=== PATIENT | female | born 1995 | race African-American/Black ===

== ENCOUNTER 2017-01-26 20:21 | Emergency (ER) | payer MEDICAID ==
--- NOTE | 2017-01-26 20:44 | ER Document Report ---
ED Medical Screen (RME) - General Stated Complaint: STOMACH AND BACK PAIN Notes: 21 yo female c/o lower abdominal pain x 2 weeks. no fever. no urinary symptoms. no vaginal bleeding or pain. + nausea, no vomiting. LMP 01/10 - Related Data Allergies/Adverse Reactions: No Known Allergies Allergy (Unverified 01/26/17 20:39) Physical Exam - Vital signs Vitals: Temp Pulse Resp BP Pulse Ox 98.3 F 102 H 20 141/60 H 98 01/26/17 20:27 01/26/17 20:27 01/26/17 20:27 01/26/17 20:27 01/26/17 20:27 Course - Vital Signs Vital signs: Temp Pulse Resp BP Pulse Ox 98.4 F 103 H 18 119/77 100 01/26/17 20:31 01/26/17 20:31 01/26/17 20:31 01/26/17 20:31 01/26/17 20:31
[2017-01-26 21:38] LABS: ABSOLUTE LYMPHOCYTES (AUTO) 0.9 10^3/uL (0.5-4.7); ABSOLUTE MONOCYTES (AUTO) 0.9 10^3/uL (0.1-1.4); BASOPHILS % (AUTO) 0.4 % (0-2); EOSINOPHILS % (AUTO) 0.3 % (0-6); HEMATOCRIT 36.9 % (36.0-47.0); HEMOGLOBIN 11.6 g/dL (12.0-15.5); HGB HCT DIFFERENCE -2.1; LYMPHOCYTES % (AUTO) 7.8 % (13-45); MEAN CORPUSCULAR HEMOGLOBIN 24.7 pg (27.0-33.4); MEAN CORPUSCULAR HGB CONC 31.4 g/dL (32.0-36.0); MEAN CORPUSCULAR VOLUME 79 fl (80-97); MONOCYTES % (AUTO) 7.4 % (3-13); RED BLOOD COUNT 4.68 10^6/uL (3.72-5.28); RED CELL DISTRIBUTION WIDTH 17.2 % (11.5-14.0); SEGMENTED NEUTROPHILS % (AUTO) 84.1 % (42-78); WHITE BLOOD COUNT 11.8 10^3/uL (4.0-10.5)
[2017-01-26 21:58] LABS: ALANINE AMINOTRANSFERASE 23 U/L (9-52); ALBUMIN 4.3 g/dL (3.5-5.0); ALKALINE PHOSPHATASE 69 U/L (38-126); ANION GAP 11 (5-19); ASPARTATE AMINO TRANSFERASE 18 U/L (14-36); BILIRUBIN,TOTAL 0.5 mg/dL (0.2-1.3); BLOOD UREA NITROGEN 13 mg/dL (7-20); CALCIUM 9.9 mg/dL (8.4-10.2); CARBON DIOXIDE 27 mmol/L (22-30); CHLORIDE 102 mmol/L (98-107); CREATININE RESULT 0.77 mg/dL (0.52-1.25); GLUCOSE 98 mg/dL (75-110); POTASSIUM 4.3 mmol/L (3.6-5.0); SODIUM 139.6 mmol/L (137-145); TOTAL PROTEIN 7.4 g/dL (6.3-8.2)
[2017-01-27] MEDS ORDERED: ONDANSETRON 4 MG TAB.RAPDIS PO ONE (00:51)
[2017-01-27] MEDS ORDERED: OXYCODONE-ACETAMINOPHEN 5-325 MG TABLET PO ONE (00:51)
--- NOTE | 2017-01-27 00:52 | ER Document Report ---
ED GI/ - General Chief Complaint: Lower Abdominal Pain Stated Complaint: STOMACH AND BACK PAIN Notes: Patient is a 21-year-old female that comes emergency department for chief complaint of 2 weeks of worsening lower abdominal pain that has now developed into pain in her mid back, she states she started getting nauseated and the pain worsened significantly today, she states she began having chills earlier this evening. As vomiting, fever, vaginal discharge or bleeding. Patient takes no daily medications, denies any surgeries or medical history. LMP 2016. TRAVEL OUTSIDE OF THE [place] IN LAST 30 DAYS: No - Related Data Allergies/Adverse Reactions: No Known Allergies Allergy (Unverified 01/26/17 20:39) Past Medical History - General Information source: Patient - Social History Smoking Status: Never Smoker Chew tobacco use (# tins/day): No Frequency of alcohol use: None Drug Abuse: None Lives with: Family Family History: Reviewed & Not Pertinent Patient has suicidal ideation: No Patient has homicidal ideation: No - Medical History Medical History: Negative Renal/ Medical History: Denies: Hx Peritoneal Dialysis Surgical Hx: Negative - Immunizations Immunizations up to date: Yes Hx Diphtheria, Pertussis, Tetanus Vaccination: Yes Review of Systems - Review of Systems Constitutional: See HPI EENT: No symptoms reported Cardiovascular: No symptoms reported Respiratory: No symptoms reported Gastrointestinal: See HPI Genitourinary: See HPI Female Genitourinary: No symptoms reported Musculoskeletal: No symptoms reported Skin: No symptoms reported Hematologic/Lymphatic: No symptoms reported Neurological/Psychological: No symptoms reported Physical Exam - Vital signs Vitals: Temp Pulse Resp BP Pulse Ox 98.3 F 102 H 20 141/60 H 98 01/26/17 20:27 01/26/17 20:27 01/26/17 20:27 01/26/17 20:27 01/26/17 20:27 Interpretation: Normal - General General appearance: Appears well, Alert. No: Anxious In distress: None - HEENT Head: Normocephalic, Atraumatic Eyes: Normal Pupils: PERRL Mouth/Lips: Normal Mucous membranes: Normal Pharynx: Normal Neck: Normal - Respiratory Respiratory status: No respiratory distress Chest status: Nontender Breath sounds: Normal Chest palpation: Normal - Cardiovascular Rhythm: Regular, Tachycardia - Borderline Heart sounds: Normal auscultation, S1 appreciated, S2 appreciated Murmur: No - Abdominal Inspection: Normal Distension: No distension. No: Distended Bowel sounds: Normal Tenderness: Tender - Mild suprapubic tenderness, no guarding, generally soft and benign abdomen. No: Guarding Organomegaly: No organomegaly - Back Back: Tender, CVA tenderness - Bilateral CVA tenderness which is mild, worse on the left, otherwise completely normal back exam - Extremities General upper extremity: Normal inspection, Nontender, Normal color, Normal ROM , Normal temperature General lower extremity: Normal inspection, Nontender, Normal color, Normal ROM , Normal temperature, Normal weight bearing. No: Melanie's sign - Neurological Neuro grossly intact: Yes Cognition: Normal Orientation: AAOx4 [place] Coma Scale Eye Opening: Spontaneous Nel Coma Scale Verbal: Oriented Nel Coma Scale Motor: Obeys Commands [place] Coma Scale Total: 15 Speech: Normal Motor strength normal: LUE, RUE, LLE, RLE Sensory: Normal - Psychological Associated symptoms: Normal affect, Normal mood - Skin Skin Temperature: Warm Skin Moisture: Dry Skin Color: Normal Course - Re-evaluation Re-evalutation: Mild leukocytosis and elevation of neutrophils, afebrile, initially mildly tachycardic but this resolved. Patient is not hypotensive. Patient is very well-appearing and alert on examination. Patient does have bilateral mild CVA tenderness, slightly worse on the left, mild suprapubic tenderness, no significant abdominal pain. Low suspicion of ureteral stone because of bilateral complaint. Urine shows positive nitrites, large amount of leukocyte esterase and white blood cells. Treating with Rocephin, Levaquin, symptom management, discussed primary care follow-up and return precautions in detail, patient states understanding and agreement. - Vital Signs Vital signs: Temp Pulse Resp BP Pulse Ox 97.6 F 77 18 122/88 H 96 01/27/17 02:08 01/27/17 02:08 01/27/17 02:08 01/27/17 02:08 01/27/17 02:08 - Laboratory Result Diagrams: 01/26/17 21:05 01/26/17 21:05 Laboratory results interpreted by me: 01/26/17 01/26/17 21:05 21:05 WBC 11.8 H Hgb 11.6 L MCV 79 L MCH 24.7 L MCHC 31.4 L RDW 17.2 H Seg Neutrophils % 84.1 H Lymphocytes % 7.8 L Absolute Neutrophils 10.0 H Urine Protein 30 H Urine Blood MODERATE H Urine Nitrite POSITIVE H Ur Leukocyte Esterase LARGE H Discharge - Discharge Clinical Impression: Flank pain Abdominal pain Qualifiers: Abdominal location: lower abdomen, unspecified Qualified Code(s): R10.30 - Lower abdominal pain, unspecified Urinary tract infection Qualifiers: Urinary tract infection type: site unspecified Hematuria presence: without hematuria Qualified Code(s): N39.0 - Urinary tract infection, site not specified Condition: Stable Disposition: HOME, SELF-CARE Additional Instructions: Workup is consistent with a developing kidney infection Take the Levaquin antibiotic daily as prescribed, take the pain and nausea medication if needed. Follow-up with primary care. Return to the emergency department for any concerning or worsening symptoms including vomiting, severe pain, fever, etc. Prescriptions: Levofloxacin [Levaquin 750 mg Tablet] 750 mg PO DAILY #4 tablet Oxycodone HCl/Acetaminophen [Percocet 5-325 mg Tablet] 1 - 2 tab PO Q4H PRN #12 tablet PRN Reason: Promethazine HCl [Phenergan 25 mg Tablet] 1 - 2 tab PO Q6H PRN #15 tablet PRN Reason: Forms: Return to Work
[2017-01-27 01:08] LABS: APPEARANCE,URINE CLOUDY; BILIRUBIN,URINE NEGATIVE (NEGATIVE); GLUCOSE, URINE NEGATIVE (NEGATIVE); KETONES,URINE NEGATIVE (NEGATIVE); LEUKOCYTE ESTERASE,URINE LARGE (NEGATIVE); NITRITE,URINE POSITIVE (NEGATIVE); PROTEIN,URINE 30 mg/dL (NEGATIVE); UROBILINOGEN,URINE NEGATIVE mg/dL (<2.0)
[2017-01-27] MEDS ORDERED: LIDOCAINE 1% INJ-PF (10 MG/ML) 30 ML SDV INJ ONE (01:12)
[2017-01-27] MEDS ORDERED: CEFTRIAXONE INJ 1000 MG VIAL IM ONE (01:12)
[2017-01-27] MEDS ORDERED: LEVOFLOXACIN 750 MG TABLET PO ONE (01:12)
[2017-01-27 02:10] VITALS: BP 122/88
== END 2017-01-27 01:00 | disposition home or self-care (01) ==
LOC: ER 20:21
DX: N39.0 Urinary tract infection, site not specified (principal); R10.30 Lower abdominal pain, unspecified; M54.89 Other dorsalgia; R11.0 Nausea; R68.83 Chills (without fever); D72.828 Other elevated white blood cell count
CPT/HCPCS: 99284; 96372; 36415; 87086; 84703; 85025; 87088; 80053; 81001; 87186; S0119; J3490 ×2; J0696

== ENCOUNTER 2017-02-28 16:45 | Emergency (ER) | payer MEDICAID ==
[2017-02-28 17:36] VITALS: BP 115/68
--- NOTE | 2017-02-28 18:20 | ER Document Report ---
ED Medical Screen (RME) - General Chief Complaint: Abdominal Pain Stated Complaint: ABDOMINAL PAIN Notes: Patient says that she's been experiencing lower mid abdominal pain for the past couple of days that's increasing. Has not had any other symptoms such as vomiting or diarrhea or UTI symptoms. Has not had a fever. Her last menstrual cycle was 02/10 and she is not on any control. Patient says she might be , although she has not done any home test. No abdominal surgery history. On no medications. TRAVEL OUTSIDE OF THE [place] IN LAST 30 DAYS: No - Related Data Allergies/Adverse Reactions: No Known Allergies Allergy (Unverified 01/26/17 20:39) Past Medical History Renal/ Medical History: Denies: Hx Peritoneal Dialysis - Immunizations Immunizations up to date: Yes Hx Diphtheria, Pertussis, Tetanus Vaccination: Yes Physical Exam - Vital signs Vitals: Temp Pulse Resp BP Pulse Ox 99.0 F 75 16 115/68 100 02/28/17 17:34 02/28/17 17:34 02/28/17 17:34 02/28/17 17:34 02/28/17 17:34 Course - Vital Signs Vital signs: Temp Pulse Resp BP Pulse Ox 99.0 F 75 16 115/68 100 02/28/17 17:34 02/28/17 17:34 02/28/17 17:34 02/28/17 17:34 02/28/17 17:34
[2017-02-28 18:43] LABS: ABSOLUTE EOSINOPHILS # (AUTO) 0.3 10^3/uL (0.0-0.6); ABSOLUTE LYMPHOCYTES (AUTO) 1.9 10^3/uL (0.5-4.7); ABSOLUTE MONOCYTES (AUTO) 0.5 10^3/uL (0.1-1.4); ABSOLUTE NEUT (AUTO) 2.7 10^3/uL (1.7-8.2); BASOPHILS % (AUTO) 0.7 % (0-2); EOSINOPHILS % (AUTO) 4.8 % (0-6); HEMATOCRIT 35.7 % (36.0-47.0); HEMOGLOBIN 11.4 g/dL (12.0-15.5); HGB HCT DIFFERENCE -1.5; LYMPHOCYTES % (AUTO) 34.9 % (13-45); MEAN CORPUSCULAR HEMOGLOBIN 25.6 pg (27.0-33.4); MEAN CORPUSCULAR HGB CONC 31.9 g/dL (32.0-36.0); MEAN CORPUSCULAR VOLUME 80 fl (80-97); MONOCYTES % (AUTO) 9.5 % (3-13); RED BLOOD COUNT 4.45 10^6/uL (3.72-5.28); RED CELL DISTRIBUTION WIDTH 17.5 % (11.5-14.0); SEGMENTED NEUTROPHILS % (AUTO) 50.1 % (42-78); WHITE BLOOD COUNT 5.4 10^3/uL (4.0-10.5)
[2017-02-28 19:08] LABS: ALANINE AMINOTRANSFERASE 20 U/L (9-52); ALBUMIN 4.4 g/dL (3.5-5.0); ALKALINE PHOSPHATASE 72 U/L (38-126); ANION GAP 14 (5-19); ASPARTATE AMINO TRANSFERASE 21 U/L (14-36); BILIRUBIN,DIRECT 0.1 mg/dL (0.0-0.4); BILIRUBIN,TOTAL 0.3 mg/dL (0.2-1.3); BLOOD UREA NITROGEN 8 mg/dL (7-20); CALCIUM 9.7 mg/dL (8.4-10.2); CARBON DIOXIDE 26 mmol/L (22-30); CHLORIDE 102 mmol/L (98-107); CREATININE RESULT 0.67 mg/dL (0.52-1.25); GLUCOSE 110 mg/dL (75-110); LIPASE 88.4 U/L (23-300); POTASSIUM 3.8 mmol/L (3.6-5.0); SODIUM 142.1 mmol/L (137-145); TOTAL PROTEIN 6.9 g/dL (6.3-8.2)
[2017-02-28 21:03] LABS: APPEARANCE,URINE SLIGHTLY-CLOUDY; BILIRUBIN,URINE NEGATIVE (NEGATIVE); CALCIUM OXALATE CRYSTALS,URINE FEW /HPF; GLUCOSE, URINE NEGATIVE (NEGATIVE); KETONES,URINE NEGATIVE (NEGATIVE); LEUKOCYTE ESTERASE,URINE LARGE (NEGATIVE); NITRITE,URINE NEGATIVE (NEGATIVE); PROTEIN,URINE NEGATIVE (NEGATIVE); URINE SPECIFIC GRAVITY 1.015; UROBILINOGEN,URINE NEGATIVE mg/dL (<2.0)
[2017-02-28] MEDS ORDERED: CEPHALEXIN 500 MG CAPSULE PO ONE (21:06)
--- NOTE | 2017-02-28 21:07 | ER Document Report ---
ED GI/ - General Chief Complaint: Abdominal Pain Stated Complaint: ABDOMINAL PAIN Time seen by provider: 21:07 Mode of Arrival: Ambulatory Information source: Patient TRAVEL OUTSIDE OF THE [place] IN LAST 30 DAYS: No - HPI Patient complains to provider of: Abdominal pain Onset: Other - 2-3 days Timing/Duration: Gradual Quality of pain: Achy, Dull Severity at maximum: Mild Severity in ED: Mild Pain Level: 1 Location: Suprapubic Vaginal bleeding (Compared to normal period): None Associated symptoms: None Exacerbated by: Denies Relieved by: Denies Similar symptoms previously: No Recently seen / treated by doctor: No Notes: 03/01/17 02:11 Patient is a 21-year-old female presenting to the emergency room complaining of lower abdominal pain that's been going on for the past few days, it is dull and achy in nature, she denies any nausea, vomiting or diarrhea, no fever or chills , no urinary symptoms, no vaginal discharge or irregular bleeding - Related Data Allergies/Adverse Reactions: No Known Allergies Allergy (Unverified 01/26/17 20:39) Past Medical History - General Information source: Patient - Social History Smoking Status: Never Smoker Chew tobacco use (# tins/day): No Drug Abuse: None Family History: Reviewed & Not Pertinent Renal/ Medical History: Denies: Hx Peritoneal Dialysis Surgical Hx: Negative - Immunizations Immunizations up to date: Yes Hx Diphtheria, Pertussis, Tetanus Vaccination: Yes Review of Systems - Review of Systems Constitutional: No symptoms reported EENT: No symptoms reported Cardiovascular: No symptoms reported Respiratory: No symptoms reported Gastrointestinal: See HPI Genitourinary: No symptoms reported Female Genitourinary: No symptoms reported Musculoskeletal: No symptoms reported Skin: No symptoms reported Hematologic/Lymphatic: No symptoms reported Neurological/Psychological: No symptoms reported -: Yes All other systems reviewed and negative Physical Exam - Vital signs Vitals: Temp Pulse Resp BP Pulse Ox 99.0 F 75 16 115/68 100 02/28/17 17:34 02/28/17 17:34 02/28/17 17:34 02/28/17 17:34 02/28/17 17:34 Interpretation: Normal - General General appearance: Appears well, Alert - HEENT Head: Normocephalic, Atraumatic Eyes: Normal Pupils: PERRL - Respiratory Respiratory status: No respiratory distress Chest status: Nontender Breath sounds: Normal Chest palpation: Normal - Cardiovascular Rhythm: Regular Heart sounds: Normal auscultation Murmur: No - Abdominal Inspection: Normal Distension: No distension Bowel sounds: Normal Tenderness: Tender - Suprapubic Organomegaly: No organomegaly - Back Back: Normal, Nontender - Extremities General upper extremity: Normal inspection, Nontender, Normal color, Normal ROM , Normal temperature General lower extremity: Normal inspection, Nontender, Normal color, Normal ROM , Normal temperature, Normal weight bearing. No: Melanie's sign - Neurological Neuro grossly intact: Yes Cognition: Normal Orientation: AAOx4 [place] Coma Scale Eye Opening: Spontaneous Nel Coma Scale Verbal: Oriented Nel Coma Scale Motor: Obeys Commands [place] Coma Scale Total: 15 Speech: Normal Motor strength normal: LUE, RUE, LLE, RLE Sensory: Normal - Psychological Associated symptoms: Normal affect, Normal mood - Skin Skin Temperature: Warm Skin Moisture: Dry Skin Color: Normal Course - Re-evaluation Re-evalutation: 03/01/17 02:12 Patient's laboratory evaluation consistent with urinary tract infection, when I went back to the room to inform her of these findings and provide her with discharge information and prescription, was unable to be found, I believe she likely eloped from the emergency room prior to receiving her discharge paperwork , nursing staff was requested to call patient at home at the number she provided so that she can return for her prescription - Vital Signs Vital signs: Temp Pulse Resp BP Pulse Ox 99.0 F 75 16 115/68 100 02/28/17 17:34 02/28/17 17:34 02/28/17 20:33 02/28/17 17:34 02/28/17 17:34 - Laboratory Result Diagrams: 02/28/17 18:25 02/28/17 18:25 Laboratory results interpreted by me: 02/28/17 02/28/17 18:25 20:40 Hgb 11.4 L Hct 35.7 L MCH 25.6 L MCHC 31.9 L RDW 17.5 H Ur Leukocyte Esterase LARGE H Discharge - Discharge Clinical Impression: Urinary tract infection Qualifiers: Urinary tract infection type: site unspecified Hematuria presence: without hematuria Qualified Code(s): N39.0 - Urinary tract infection, site not specified Condition: Stable Disposition: HOME, SELF-CARE Instructions: Urinary Tract Infection ([facility]), Cephalexin ([facility]) Additional Instructions: Follow up with your primary care provider in one to 2 days. Return to the emergency room immediately if symptoms worsen or any additional concerns. Prescriptions: Cephalexin Monohydrate [Keflex 500 mg Capsule] 500 mg PO BID #20 capsule
== END 2017-02-28 21:38 | disposition home or self-care (01) ==
LOC: ER 16:45
DX: N39.0 Urinary tract infection, site not specified (principal); R10.30 Lower abdominal pain, unspecified
CPT/HCPCS: 36415; 80053; 81001; 83690; 84703; 85025; 99284

== ENCOUNTER 2018-11-07 06:07 | Emergency (ER) | payer SELFPAY ==
[2018-11-07 06:13] VITALS: BP 107/74
[2018-11-07] MEDS ORDERED: ACETAMINOPHEN 325 MG TABLET PO ONE (07:01)
[2018-11-07] MEDS ORDERED: LIDOCAINE 1% INJ-PF (10 MG/ML) 30 ML SDV NEB ONE (07:40)
[2018-11-07] MEDS ORDERED: DEXAMETHASONE SOD PHOS INJ 10 MG/1 ML VIAL IM ONE (07:41)
--- NOTE | 2018-11-07 08:38 | ER Document Report ---
HPI - HPI Time Seen by Provider: 11/07/18 07:17 Pain Level: Denies Notes: Patient is a 22-year-old female who presents with chief complaint of sore throat and low-grade fever that started on Tuesday. Patient reports that it resolved on Tuesday and has now returned. She states that she does have a history of strep throat, unsure if this feels similar. Denies any recent sick contacts. Denies any cough or congestion. - CONSTITUTIONAL Constitutional: DENIES: Fever, Chills - EENT EENT: REPORTS: Sore Throat - RESPIRATORY Respiratory: REPORTS: Coughing Past Medical History - General Information source: Patient - Social History Smoking Status: Never Smoker Chew tobacco use (# tins/day): No Frequency of alcohol use: None Drug Abuse: None Family History: Reviewed & Not Pertinent Patient has suicidal ideation: No Patient has homicidal ideation: No - Medical History Medical History: Negative Renal/ Medical History: Denies: Hx Peritoneal Dialysis Surgical Hx: Negative - Immunizations Immunizations up to date: Yes Hx Diphtheria, Pertussis, Tetanus Vaccination: Yes Vertical Provider Document - CONSTITUTIONAL Notes: PHYSICAL EXAMINATION: GENERAL: Well-appearing, well-nourished and in no acute distress. HEAD: Atraumatic, normocephalic. EYES: Pupils equal round extraocular movements intact, conjunctiva are normal. ENT: Nares patent, mild tonsillar swelling noted, tonsils not touching, uvula midline, no exudates noted, no evidence of peritonsillar abscess. NECK: Normal range of motion LUNGS: No respiratory distress Musculoskeletal: Normal range of motion NEUROLOGICAL: Normal speech, normal gait. PSYCH: Normal mood, normal affect. SKIN: Warm, Dry, normal turgor, no rashes or lesions noted. - INFECTION CONTROL TRAVEL OUTSIDE OF THE [place] IN LAST 30 DAYS: No Course - Re-evaluation Re-evalutation: Rapid strep is negative. Patient was given Decadron 10 mg IM as well as lidocaine nebulizer treatment. Patient does report she feels somewhat better. Patient is speaking in full and complete sentences, swallowing without difficulty. Will discharge patient home with symptomatic treatment pending throat culture. Patient is agreeable to this plan. - Vital Signs Vital signs: Temp Pulse Resp BP Pulse Ox 97.9 F 84 16 107/74 100 11/07/18 06:11 11/07/18 06:11 11/07/18 06:11 11/07/18 06:11 11/07/18 06:11 Discharge - Discharge Clinical Impression: Sore throat Condition: Stable Disposition: HOME, SELF-CARE Additional Instructions: SORE THROAT: Sore throats may be caused by viruses, bacteria, or fungi. Most are due to a virus, and must get better on their own. Bacterial sore throats, particularly those due to "strep," need treatment with antibiotics. If an antibiotic is prescribed, be sure to take the medication for a full 10 days. Failure to take the antibiotic can result in complications such as rheumatic fever. Sometimes, an injection of antibiotics is given instead of pills or liquid. This single "shot" is equal in effectiveness to the oral medication. To relieve symptoms, take acetaminophen for pain. Sip clear liquids frequently, or eat popsicles or ice chips. Anesthetic sprays or lozenges may help. Make sure the air in the room is not too dry. Avoid using decongestants or antihistamines. Call the doctor if there is no improvement in two days, or if you have difficulty breathing, increasing throat pain, high fever, rash, or frequent vomiting. STEROID MEDICATION: You have been given a medicine of the cortisone/steroid class. This medication is used to control inflammation or allergy. It is usually only given for a short period of time, until the acute process subsides. There are usually no side effects from short-term use of cortisone-like medications. Some persons feel an increased sense of well-being and are not sleepy at bedtime. Long-term use of cortisone medications is best avoided, unless required for a severe condition. If your condition does not remit, or relapses after the course of corticosteroid medication, you should consult your physician. FOLLOW-UP CARE: If you have been referred to a physician for follow-up care, call the physician s office for an appointment as you were instructed or within the next two days. If you experience worsening or a significant change in your symptoms, notify the physician immediately or return to the Emergency Department at any time for re-evaluation. Your rapid strep test was negative. We will send this sample down for a throat culture. This takes 1-2 days to come back, if anything abnormal comes back on it we will call you. You are given a dose of Decadron here in the emergency department this will help with the inflammation and swelling, this will last for 3 days there is no need for an additional prescription. Please continue to use Tylenol and ibuprofen for pain as needed. Return to the emergency department if you experience worsening of your sore throat, increased swelling, you are unable to swallow or you develop any difficulty breathing. Forms: Return to Work
== END 2018-11-07 09:12 | disposition home or self-care (01) ==
LOC: ER 06:07
DX: J02.9 Acute pharyngitis, unspecified (principal); R50.9 Fever, unspecified
CPT/HCPCS: 99283; 96372; 87070; 87880; 87077; J3490; J1100

== ENCOUNTER → 2019-03-14 | Outpatient (CLI) | payer MEDICAID ==
--- NOTE | 2019-03-14 13:58 | RADIOLOGY REPORT (SQ) ---
EXAM DESCRIPTION: U/S [id number] TRNABD 1GES W/ODOP COMPLETED DATE/TIME: 03/14/2019 1:19 pm REASON FOR STUDY: ENCOUNTER FOR SUPRVSN OF NORMAL , FIRST TRIMESTER Z34.81 ENCOUNTER FOR S UPRVSN OF NORMAL , FIRST TRIM COMPARISON: None. TECHNIQUE: Transabdominal static and realtime grayscale images acquired of the pelvis. Additional se lected spectral and color Doppler images recorded. All images stored on PACs. bHCG: Not available CLINICAL DATES: LMP 01/16/2019. 8 weeks 1 day LIMITATIONS: None. FINDINGS: FETUS: Single Living intrauterine . ULTRASOUND EGA: 7 weeks 6 days ULTRASOUND LEXII: 10/25/2019 EFW: Not applicable less than 20 weeks. CRL: 1.55 cm. FHR: 173 beats per minute. SURVEY: Too early to assess. AMNIOTIC FLUID: Adequate amount. PLACENTA: Not yet developed due to early gestation. SUBCHORIONIC BLEED: No SIZE OF BLEED: Not applicable. UTERUS: No masses. No anomalies. CERVICAL LENGTH: 2.6 cm. Closed. RIGHT ADNEXA: Normal ovary with normal vascular flow. 3.2 x 3.1 x 2.3 cm. No adnexal free fluid. No adnexal masses. LEFT ADNEXA: Normal ovary with normal vascular flow. 3.2 x 3.1 x 1.2 cm. No adnexal free fluid. No adnexal masses. FREE FLUID: None. OTHER: No other significant finding. IMPRESSION: LIVING INTRAUTERINE . EGA 7 weeks 6 days. Trimester of : First - 0 to 13 weeks. TECHNICAL DOCUMENTATION: JOB ID: [id number]- All Rights Reserved rev-04/07 Reading location - IP/workstation name: [email or web address]
== END ==
LOC: RAD 12:33
PROVIDERS: ATTEND Midwife
DX: Z34.81 Encounter for supervision of other normal pregnancy, first trimester (principal)
CPT/HCPCS: 76801

== ENCOUNTER 2019-04-22 18:20 | Emergency (ER) | payer MEDICAID ==
--- NOTE | 2019-04-22 18:55 | ER Document Report ---
ED Medical Screen (RME) - General Chief Complaint: Abdominal Pain Stated Complaint: LOW ABDOMINAL PAIN,NAUSEA Time Seen by Provider: 04/22/19 18:51 Primary Care Provider: FERNANDO MANSFIELD CNM [Primary Care Provider] - Follow up as needed Notes: Patient presents complaining of lower pelvic pain for the past week that is gradually started to get worse. Patient is currently 13 weeks G2, P1. Patient denies any vaginal bleeding or discharge. Patient denies any urinary symptoms. Patient states she was treated for trichomonas about a month ago. I have greeted and performed a rapid initial assessment of this patient. A comprehensive ED assessment and evaluation of the patient, analysis of test results and completion of the medical decision making process will be conducted by additional ED providers. TRAVEL OUTSIDE OF THE [place] IN LAST 30 DAYS: No - Related Data Allergies/Adverse Reactions: No Known Allergies Allergy (Verified 04/22/19 18:25) Past Medical History - Social History Chew tobacco use (# tins/day): No Frequency of alcohol use: None Drug Abuse: None Renal/ Medical History: Denies: Hx Peritoneal Dialysis - Immunizations Immunizations up to date: Yes Hx Diphtheria, Pertussis, Tetanus Vaccination: Yes Physical Exam - Vital signs Vitals: Temp Pulse Resp BP Pulse Ox 98.2 F 88 18 116/68 100 04/22/19 18:29 04/22/19 18:29 04/22/19 18:29 04/22/19 18:29 04/22/19 18:29 - Abdominal Tenderness: Tender - Lower pelvic Course - Vital Signs Vital signs: Temp Pulse Resp BP Pulse Ox 98.2 F 88 18 116/68 100 04/22/19 18:29 04/22/19 18:29 04/22/19 18:29 04/22/19 18:29 04/22/19 18:29 Doctor's Discharge - Discharge Referrals: FERNANDO MANSFIELD CNM [Primary Care Provider] - Follow up as needed
[2019-04-22 19:34] LABS: APPEARANCE,URINE SLIGHTLY-CLOUDY; BILIRUBIN,URINE NEGATIVE (NEGATIVE); COLOR,URINE YELLOW; GLUCOSE, URINE NEGATIVE (NEGATIVE); KETONES,URINE NEGATIVE (NEGATIVE); LEUKOCYTE ESTERASE,URINE NEGATIVE (NEGATIVE); NITRITE,URINE NEGATIVE (NEGATIVE); PROTEIN,URINE NEGATIVE (NEGATIVE); URINE SPECIFIC GRAVITY 1.016; UROBILINOGEN,URINE NEGATIVE mg/dL (<2.0)
[2019-04-22 20:42] LABS: ABSOLUTE EOSINOPHILS # (AUTO) 0.1 10^3/uL (0.0-0.6); ABSOLUTE MONOCYTES (AUTO) 0.4 10^3/uL (0.1-1.4); ABSOLUTE NEUT (AUTO) 2.8 10^3/uL (1.7-8.2); BASOPHILS % (AUTO) 0.6 % (0-2); EOSINOPHILS % (AUTO) 2.5 % (0-6); HEMATOCRIT 35.9 % (36.0-47.0); HEMOGLOBIN 11.9 g/dL (12.0-15.5); LYMPHOCYTES % (AUTO) 36.9 % (13-45); MEAN CORPUSCULAR HEMOGLOBIN 27.5 pg (27.0-33.4); MEAN CORPUSCULAR VOLUME 83 fl (80-97); MONOCYTES % (AUTO) 8.1 % (3-13); PLATELET COUNT 254 10^3/uL (150-450); RED BLOOD COUNT 4.32 10^6/uL (3.72-5.28); RED CELL DISTRIBUTION WIDTH 14.4 % (11.5-14.0); SEGMENTED NEUTROPHILS % (AUTO) 51.9 % (42-78); TOTAL CELLS COUNTED % (AUTO) 100 %; WHITE BLOOD COUNT 5.4 10^3/uL (4.0-10.5)
--- NOTE | 2019-04-22 20:49 | RADIOLOGY REPORT (SQ) ---
EXAM DESCRIPTION: US LESS THAN 14 WEEKS COMPLETED DATE/TME: 04/22/2019 18:54 CLINICAL HISTORY: pelvic pain COMPARISON: None. FINDINGS: Cervix is closed measuring 3.7 cm in length. There is a single intrauterine with heart motion of 168 bpm. pole measures 7.6 cm in length corresponding to 13 weeks and five days. The placenta is within normal limits. The right ovary measured 2.6 x 2 cm. The left ovary measured 2 x 1.5 cm. There is no sonographic evidence of ovarian torsion. IMPRESSION: Single live intrauterine of 13 weeks and five days. Recommend follow-up around 20 weeks of gestation for a complete anatomical survey unless clinically indicated sooner.
[2019-04-22 21:09] LABS: ANION GAP 9 (5-19); BLOOD UREA NITROGEN 7 mg/dL (7-20); CALCIUM 9.6 mg/dL (8.4-10.2); CARBON DIOXIDE 26 mmol/L (22-30); CHLORIDE 102 mmol/L (98-107); GLUCOSE 82 mg/dL (75-110); POTASSIUM 4.6 mmol/L (3.6-5.0); SODIUM 137.3 mmol/L (137-145)
--- NOTE | 2019-04-22 22:09 | ER Document Report ---
ED General - General Chief Complaint: Abdominal Pain Stated Complaint: LOW ABDOMINAL PAIN,NAUSEA Time Seen by Provider: 04/22/19 18:51 Primary Care Provider: CATRACHITA DIAS DO [ACTIVE STAFF] - Follow up as needed FERNANDO MANSFIELD CNM [Primary Care Provider] - Follow up as needed Notes: Patient is a G2, P1 23-year-old female who presents the emergency department with a chief complaint of low abdominal pain. She states that has been going on for about a week. She is currently 13 weeks . She states that the pain is getting worse. She states that every time she walks she feels pressure and cramps. She denies any vaginal discharge, nausea, vomiting, diarrhea, fever, vaginal bleeding, or any other symptoms at this time. She has [facility] for [facility] care. TRAVEL OUTSIDE OF THE [place] IN LAST 30 DAYS: No - Related Data Allergies/Adverse Reactions: No Known Allergies Allergy (Verified 04/22/19 18:25) Past Medical History - General Information source: Patient - Social History Smoking Status: Never Smoker Chew tobacco use (# tins/day): No Frequency of alcohol use: None Drug Abuse: None Family History: Reviewed & Not Pertinent Patient has suicidal ideation: No Patient has homicidal ideation: No Renal/ Medical History: Denies: Hx Peritoneal Dialysis - Immunizations Immunizations up to date: Yes Hx Diphtheria, Pertussis, Tetanus Vaccination: Yes Review of Systems - Review of Systems Notes: REVIEW OF SYSTEMS: CONSTITUTIONAL : Denies recent illness. Denies recent unintentional weight loss. Denies fever, chills, or sweats. EENT: Denies eye, ear, throat, or mouth pain, discharge, or symptoms. Denies nasal or sinus congestion. CARDIOVASCULAR: Denies chest pain. RESPIRATORY: Denies shortness of breath, cough, congestion, difficulty breathing, or wheezing. GASTROINTESTINAL: See HPI GENITOURINARY: Denies difficulty urinating, burning, blood in urine, urgency or frequency. FEMALE GENITOURINARY: See HPI MUSCULOSKELETAL: Denies neck and back pain. Denies joint pain or swelling. SKIN: Denies rash, itchiness, or lesions HEMATOLOGIC : Denies easy bruising or bleeding. LYMPHATIC: Denies swollen, painful, enlarged glands. NEUROLOGICAL: Denies no numbness or tingling denies weakness. Denies headache. Denies altered mental status. Denies alteration in speech. PSYCHIATRIC: Denies stress, anxiety, alteration in sleep patterns, or depression. All other systems reviewed and negative. Physical Exam - Vital signs Vitals: Temp Pulse Resp BP Pulse Ox 98.2 F 88 18 116/68 100 04/22/19 18:29 04/22/19 18:29 04/22/19 18:29 04/22/19 18:29 04/22/19 18:29 - Notes Notes: PHYSICAL EXAMINATION: GENERAL: Appears well, healthy, well-nourished, no acute distress. HEAD: Normocephalic, atraumatic. EYES: PERRL, conjunctiva normal, all extraocular movements intact, sclera nonicteric ENT: Moist mucous membranes. NECK: Supple, no noticeable swelling, redness, rash. Normal range of motion. LUNGS: Equal breath sounds bilaterally and clear to auscultation. No wheezes rales or rhonchi. CARDIOVASCULAR: S1-S2, regular rate, regular rhythm. Radial pulses 2+, normal. ABDOMEN: Normoactive bowel sounds. Soft, nontender, no guarding, no rebound tenderness, and no masses palpated. EXTREMITIES: Normal strength and range of motion, no pitting or edema. No cyanosis. NEUROLOGICAL: Moves all extremities upon command. Strength 5/5 in all extremities. PSYCH: Normal mood, normal affect. SKIN: Warm, dry. No rash, lesions, ulcerations noted. Normal skin turgor. Course - Re-evaluation Re-evalutation: 04/22/19 22:47 Patient's wet mount is negative for any acute infection. Gonorrhea and Chlamydia are negative. Hematology and chemistries are unremarkable. Her hCG is consistent with a 13-week . Her ultrasound is normal. I do not suspect any life-threatening etiology at this time. I am suspecting the patient may be having round ligament pain due to her abdominal stretching from this . I have advised her that every is different. She will follow-up with [facility]. I told her that Tylenol is safe for . I do not suspect patient has any life-threatening etiology at this time. She is stable for discharge. - Vital Signs Vital signs: Temp Pulse Resp BP Pulse Ox 97.8 F 72 16 121/80 100 04/22/19 23:04 04/22/19 23:04 04/22/19 23:04 04/22/19 23:04 04/22/19 23:04 - Laboratory Result Diagrams: 04/22/19 20:26 04/22/19 20:26 Laboratory results interpreted by me: 04/22/19 04/22/19 20:26 20:26 Hgb 11.9 L Hct 35.9 L RDW 14.4 H Creatinine 0.50 L Beta HCG, Quant 86266.00 H Discharge - Discharge Clinical Impression: Abdominal pain during Qualifiers: Trimester: second trimester Qualified Code(s): O26.892 - Other specified related conditions, second trimester Condition: Stable Disposition: HOME, SELF-CARE Additional Instructions: You were seen today in the emergency department for abdominal pain during . Your labs and ultrasound are all normal. 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 You can take Tylenol 650 mg every 6 hours for your pain. If you feel your symptoms are getting worse, have vaginal discharge, or develop vaginal bleeding, please return to the emergency department. Referrals: FERNANDO MANSFIELD CNM [Primary Care Provider] - Follow up as needed CATRACHITA DIAS DO [ACTIVE STAFF] - Follow up as needed
[2019-04-22 22:19] LABS: CHLAM PCR NOT DETECTED (NOT DETECT); GON PCR NOT DETECTED (NOT DETECT)
[2019-04-22 22:39] LABS: EPITHELIALS (WET MOUNT) 3+ EPITHELIALS SEEN; T.VAGINALIS (WET MOUNT) NO TRICHOMONAS SEEN; WBCS (WET MOUNT) NO WBCS SEEN; YEAST (WET MOUNT) NO YEAST SEEN
[2019-04-22] MEDS ORDERED: ACETAMINOPHEN 325 MG TABLET PO ONE (22:51)
[2019-04-22 23:21] VITALS: BP 121/80
== END 2019-04-22 23:05 | disposition home or self-care (01) ==
LOC: ER 18:20
DX: O26.891 Other specified pregnancy related conditions, first trimester (principal); R10.30 Lower abdominal pain, unspecified; Z3A.13 13 weeks gestation of pregnancy
CPT/HCPCS: 99284; 36415; 87210; 84702; 85025; 80048; 81001; 87491; 87591; 76801; J3490

== ENCOUNTER 2019-10-13 15:16 | Outpatient (CLI) | payer MEDICAID ==
[2019-10-13 15:54] LABS: T.VAGINALIS (WET MOUNT) NO TRICHOMONAS SEEN; YEAST (WET MOUNT) YEAST SEEN
[2019-10-13 15:55] LABS: BACTERIA (WET MOUNT) 3+ BACTERIA SEEN; EPITHELIALS (WET MOUNT) 3+ EPITHELIALS SEEN; WBCS (WET MOUNT) 3+ WBCS SEEN
[2019-10-13] MEDS ORDERED: HYDROXYZINE PAMOATE 50 MG CAPSULE PO ONE (16:13)
--- NOTE | 2019-10-13 16:16 | Non Stress Test Report ---
Non Stress Test Datetime Report Generated by CPN: 10/13/2019 16:16 DEMOGRAPHIC EGA NST: 38.4 INDICATION Indication for Study (NST) Other: labor check VITAL SIGNS Temperature - NST: 97.9 RESP - NST: 15 NBPSYS NST: 130 NBPDIA NST: 80 MONITORING Monitor Explained: Monitor Explained; Test Explained; Patient Verbalized Understanding Time on Monitor: 10/13/2019 15:28 Time off Monitor: 10/13/2019 16:03 NST Duration: 35 NST INTERVENTIONS NST Interventions: None Physician Notified NST: Dr Kaba BABY A: [id number] BABY A Movement : Present Contraction Frequency : 5-7 FHR Baseline : 150 Accelerations : 15X15 Decelerations : None Variability : Moderate 6-25bpm NST Review: Meets Criteria for Reactive NST NST Review and Verified By : Anjali Medina RN NST Results: Reactive NST REPORT Report Trigger: Send Report
[2019-10-13] MEDS ORDERED: HYDROXYZINE PAMOATE 50 MG CAPSULE ONE (16:21)
[2019-10-13 16:47] LABS: APPEARANCE,URINE SLIGHTLY-CLOUDY; BILIRUBIN,URINE NEGATIVE (NEGATIVE); COLOR,URINE YELLOW; GLUCOSE, URINE NEGATIVE (NEGATIVE); KETONES,URINE NEGATIVE (NEGATIVE); LEUKOCYTE ESTERASE,URINE LARGE (NEGATIVE); NITRITE,URINE NEGATIVE (NEGATIVE); PROTEIN,URINE NEGATIVE (NEGATIVE); URINE SPECIFIC GRAVITY 1.009; UROBILINOGEN,URINE NEGATIVE mg/dL (<2.0)
[2019-10-13 17:03] LABS: URINE AMPHETAMINES SCREEN NEGATIVE; URINE BARBITURATES SCREEN NEGATIVE; URINE BENZODIAZEPINES SCREEN NEGATIVE; URINE COCAINE SCREEN NEGATIVE; URINE MARIJUANA (THC) SCREEN NEGATIVE; URINE METHADONE SCREEN NEGATIVE; URINE PHENCYCLIDINE SCREEN NEGATIVE
[2019-10-13 18:50] LABS: CHLAM PCR NOT DETECTED (NOT DETECT)
== END 2019-10-13 16:30 | disposition home or self-care (01) ==
LOC: LC 15:16
PROVIDERS: ATTEND Obstetrics & Gynecology
PROC: 4A1HXCZ Monitoring of Products of Conception, Cardiac Rate, External Approach (ICD-10-PCS; principal; 2019-10-13)
DX: O98.813 Other maternal infectious and parasitic diseases complicating pregnancy, third trimester (principal); Z3A.38 38 weeks gestation of pregnancy
CPT/HCPCS: 59025; 87210; 81005; 80307; 87491; 87591; 84112; J3490

== ENCOUNTER 2019-10-26 23:23 | Inpatient (IN) | payer MEDICAID ==
[2019-10-27 00:12] LABS: APPEARANCE,URINE SLIGHTLY-CLOUDY; BILIRUBIN,URINE NEGATIVE (NEGATIVE); COLOR,URINE STRAW; GLUCOSE, URINE NEGATIVE (NEGATIVE); KETONES,URINE NEGATIVE (NEGATIVE); LEUKOCYTE ESTERASE,URINE LARGE (NEGATIVE); NITRITE,URINE NEGATIVE (NEGATIVE); PROTEIN,URINE NEGATIVE (NEGATIVE); URINE SPECIFIC GRAVITY 1.003; UROBILINOGEN,URINE NEGATIVE mg/dL (<2.0)
[2019-10-27 00:28] LABS: URINE AMPHETAMINES SCREEN NEGATIVE; URINE BARBITURATES SCREEN NEGATIVE; URINE BENZODIAZEPINES SCREEN NEGATIVE; URINE COCAINE SCREEN NEGATIVE; URINE MARIJUANA (THC) SCREEN NEGATIVE; URINE METHADONE SCREEN NEGATIVE; URINE PHENCYCLIDINE SCREEN NEGATIVE
[2019-10-27] MEDS ORDERED: OXYTOCIN 10 UNIT/ML VIAL ONE (01:40)
[2019-10-27] MEDS ORDERED: MISOPROSTOL 0.2 MG TABLET ONE (01:40)
[2019-10-27] MEDS ORDERED: OXYTOCIN/NORMAL SALINE 0 UNIT/0 ML RTUINJ ONE (01:40)
[2019-10-27] MEDS ORDERED: LIDOCAINE 1% INJ-PF (10 MG/ML) 30 ML SDV ONE (01:40)
[2019-10-27 01:59] LABS: ABSOLUTE EOSINOPHILS # (AUTO) 0.1 10^3/uL (0.0-0.6); ABSOLUTE LYMPHOCYTES (AUTO) 1.5 10^3/uL (0.5-4.7); ABSOLUTE MONOCYTES (AUTO) 0.9 10^3/uL (0.1-1.4); ABSOLUTE NEUT (AUTO) 4.9 10^3/uL (1.7-8.2); BASOPHILS % (AUTO) 0.6 % (0-2); EOSINOPHILS % (AUTO) 1.5 % (0-6); HEMATOCRIT 31.3 % (36.0-47.0); LYMPHOCYTES % (AUTO) 20.5 % (13-45); MEAN CORPUSCULAR HEMOGLOBIN 22.9 pg (27.0-33.4); MEAN CORPUSCULAR VOLUME 72 fl (80-97); MONOCYTES % (AUTO) 11.8 % (3-13); PLATELET COUNT 268 10^3/uL (150-450); RED BLOOD COUNT 4.38 10^6/uL (3.72-5.28); RED CELL DISTRIBUTION WIDTH 18.9 % (11.5-14.0); SEGMENTED NEUTROPHILS % (AUTO) 65.6 % (42-78); TOTAL CELLS COUNTED % (AUTO) 100 %; WHITE BLOOD COUNT 7.5 10^3/uL (4.0-10.5)
[2019-10-27] MEDS ORDERED: NALBUPHINE HCL INJ 10 MG/1 ML AMPULE ONE (02:52)
[2019-10-27] MEDS ORDERED: NALBUPHINE HCL INJ 10 MG/1 ML AMPULE IV ONE (02:53)
--- NOTE | 2019-10-27 03:54 | Admission Physical ---
Datetime Report Generated by CPN: 10/27/2019 03:54 CURRENT ADMISSION Chief Complaint: Uterine Contractions Indication for Induction: Not Applicable Admit Impression : Term, Intrauterine Admit Plan: Admit to Unit; Initiate Labor Protocol ALLERGIES Medication Allergies: No Medication Allergies: No Known Allergies (10/26/2019) OBSTETRICAL HISTORY EDC: 10/23/2019 00:00 : 2 Para: 1 Term: 1 : 0 SAB: 0 IAB: 0 Ectopic: 0 Livin Cesareans: 0 VBACs: 0 Multiple Births: 0 Gestational Diabetes: No Rh Sensitization: No Incompetent Cervix: No SHARI: No Infertility: No ART Treatment: No Uterine Anomaly: No IUGR: No Hx Previous C/S: No Macrosomia: No Hx Loss/Stillborn: No PIH: No Hx : No Placenta Previa/Abruption: No Depression/PP Depression: No PTL/PROM: No Post Hemorrhage: No Current Procedures: Ultrasound; NST Obstetrical History Comments: G1: 2014, 40 wks, 6lbs 14 oz male, vaginal G2: current SEE RECORDS Alcohol: No Marijuana : No Cocaine: No Other Illicit Drugs: No Cigarettes: Never Smoker. 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 Surgery: No Heart Disease: No Hosp/Surgery: No Autoimmune Disorder: No Anesthetic Complications: No Kidney Disease: No Abnormal Pap Smear: No Neuro/Epilepsy: No Psychiatric Disorders: No Other Medical Diseases: No Hepatitis/Liver Disease: No Significant Family History: No Varicosities/Phlebitis: No Trauma/Violence : No Thyroid Dysfunction: No INFECTIOUS HISTORY Gonorrhea: No Chlamydia: No Syphilis: No HIV/AIDS Exposure: No HPV: No Infectious History Comments: + Trich this february 2019, PHYSICAL EXAM General: Normal HEENT: Normal Neurologic: Normal Thyroid: Normal Heart: Normal Lungs: Normal Breast: Deferred Back: Normal Abdomen: Normal Genitourinary Exam: Normal Extremities: Normal DTRs: Normal Pelvic Type: Adequate FETUS A EGA: 40.4 PLANS FOR LABOR AND DELIVERY Pain Management: None Feeding Preference: Breast Benefit of Breast Feed Discussed: Yes Circumcision: Yes INFORMED CONSENT Signature: with User ID: [email or web address]
--- NOTE | 2019-10-27 07:56 | Warning Signs in Babies ---
VOD Warning Signs Datetime Report Generated by [facility]: 10/27/2019 07:56 VOD#608 -Warning Signs in Babies: Viewed with Parent(s)/Family (10/27/2019 07:55:Keaton Flores RN)
[2019-10-27] MEDS: RINGERS SOLUTION,LACTATED 1,000 ML IV PRN ×5 (08:01→18:12)
[2019-10-27] MEDS ORDERED: OXYTOCIN/NORMAL SALINE 20 UNIT/1,000 ML RTUINJ ONE (12:35)
[2019-10-27] MEDS ORDERED: OXYTOCIN/NORMAL SALINE 20 UNIT/1,000 ML RTUINJ IV PRN ×2 (12:40→17:02)
[2019-10-27] MEDS ORDERED: EPHEDRINE SULFATE INJ 50 MG/1 ML AMPULE ONE (15:21)
[2019-10-27] MEDS ORDERED: PHENYLEPHRINE HCL INJ/PF 10 MG/1 ML SDV ONE (15:21)
[2019-10-27] MEDS ORDERED: FENTANYL CITRATE INJ/PF 100 MCG/2 ML AMPUL ONE (15:21)
[2019-10-27] MEDS ORDERED: FENTANYL/BUPIVACAINE/NS/PF 300 MCG/150 ML RTUINJ EPI ONE (15:22)
[2019-10-27] MEDS ORDERED: BUPIVACAINE HCL 0.25 % INJ/PF (2.5 MG/1 ML) 30 ML VIAL ONE (15:22)
[2019-10-27] MEDS ORDERED: ZOLPIDEM TARTRATE 5 MG TABLET PO PRN (17:02)
[2019-10-27] MEDS ORDERED: DIBUCAINE 1% OINTMENT 56 GM TP PRN (17:02)
[2019-10-27] MEDS ORDERED: PROMETHAZINE HCL 25 MG TABLET PO PRN (17:02)
[2019-10-27] MEDS ORDERED: MEASLES,MUMPS&RUBELLA VACC/PF 0.5 ML VIAL SUBCUT PRN (17:02)
[2019-10-27] MEDS ORDERED: NA PHOS,M-B/NA PHOS,DI-BA (ADULT) 133 ML ENEMA PR PRN (17:02)
[2019-10-27] MEDS ORDERED: DIPH/PERTUSS(ACELL)/TETANUS VAC/PF 0.5 ML SYR (>=10YO) IM PRN (17:02)
[2019-10-27] MEDS ORDERED: BENZOCAINE/MENTHOL AEROSOL SPRAY 56 ML TOP PRN (17:02)
[2019-10-27] MEDS ORDERED: PROMETHAZINE HCL INJ 25 MG/1 ML VIAL IV PRN (17:02)
[2019-10-27] MEDS ORDERED: ACETAMINOPHEN 650 MG SUPP.RECT PR PRN (17:02)
[2019-10-27] MEDS ORDERED: MAGNESIUM HYDROXIDE SUSP 30 ML UDCUP PO PRN (17:02)
[2019-10-27] MEDS ORDERED: PSEUDOEPHEDRINE HCL 30 MG TABLET PO PRN (17:02)
[2019-10-27] MEDS ORDERED: DIPHENHYDRAMINE HCL 25 MG CAPSULE PO PRN (17:02)
[2019-10-27] MEDS ORDERED: PROMETHAZINE HCL 25 MG SUPP.RECT PR PRN (17:02)
[2019-10-27] MEDS ORDERED: ACETAMINOPHEN WITH CODEINE #3 TABLET PO PRN ×2 (17:02)
[2019-10-27] MEDS ORDERED: GLYCERIN/WITCH HAZEL LEAF 1 EACH MED..WIPE TP PRN (17:02)
[2019-10-27] MEDS ORDERED: ACETAMINOPHEN 325 MG TABLET ONE (17:47)
[2019-10-27] MEDS ORDERED: ACETAMINOPHEN 325 MG TABLET PO PRN (17:51)
[2019-10-27] MEDS ORDERED: CEFTRIAXONE INJ 1000 MG VIAL IV SCH ×2 (17:53→22:00)
[2019-10-27] MEDS: FERROUS SULFATE 325 MG TABLET PO SCH (18:00)
[2019-10-27] MEDS: DOCUSATE SODIUM 100 MG CAPSULE PO SCH (18:00)
[2019-10-27] MEDS ORDERED: CEFTRIAXONE INJ 1000 MG VIAL ONE (18:00)
[2019-10-27] MEDS ORDERED: CEFTRIAXONE 1 GM/D5W RTU 1 GM/50 ML RTUPB IV ONE (18:02)
[2019-10-27] MEDS: CEFTRIAXONE 1 GM/D5W RTU 1 GM/50 ML RTUPB IV SCH (19:27)
[2019-10-27] MEDS: FAMOTIDINE 20 MG TABLET PO SCH (21:14)
[2019-10-27] MEDS: IBUPROFEN 800 MG TABLET PO SCH (21:14)
[2019-10-28] MEDS: CEFTRIAXONE 1 GM/D5W RTU 1 GM/50 ML RTUPB IV SCH ×2 (05:44→17:22)
[2019-10-28] MEDS: IBUPROFEN 800 MG TABLET PO SCH ×3 (05:44→22:52)
[2019-10-28 07:16] LABS: HEMATOCRIT 24.3 % (36.0-47.0); MEAN CORPUSCULAR HEMOGLOBIN 22.8 pg (27.0-33.4); MEAN CORPUSCULAR HGB CONC 31.9 g/dL (32.0-36.0); MEAN CORPUSCULAR VOLUME 71 fl (80-97); PLATELET COUNT 246 10^3/uL (150-450); RED CELL DISTRIBUTION WIDTH 18.5 % (11.5-14.0); WHITE BLOOD COUNT 12.1 10^3/uL (4.0-10.5)
[2019-10-28 07:28] LABS: HEMOGLOBIN 7.7 g/dL (12.0-15.5)
[2019-10-28] MEDS: FAMOTIDINE 20 MG TABLET PO SCH ×2 (10:02→22:52)
[2019-10-28] MEDS: DOCUSATE SODIUM 100 MG CAPSULE PO SCH ×2 (10:02→17:23)
[2019-10-28] MEDS: PRENATAL VITAMIN W DHA CAPSULE PO SCH (10:02)
[2019-10-28] MEDS: FERROUS SULFATE 325 MG TABLET PO SCH ×2 (10:02→17:23)
[2019-10-28] MEDS: SENNOSIDES/DOCUSATE 8.6-50 MG 1 EACH TABLET PO SCH (10:02)
[2019-10-28] MEDS: ASCORBIC ACID 500 MG TABLET PO SCH ×2 (10:25→22:52)
--- NOTE | 2019-10-28 10:53 | PDOC PROGRESS REPORT ---
Subjective-OB Progress Note for:: 10/28/19 Subjective: Pt doing well. No concerns. She reports light bleeding, reg diet and voiding without difficulty. Physical Exam (OB) Vital Signs: Temp Pulse Resp BP Pulse Ox 98.4 F 110 H 18 109/70 100 10/28/19 07:27 10/28/19 07:27 10/28/19 07:27 10/28/19 07:27 10/28/19 07:27 Intake & Output 10/27/19 10/28/19 10/29/19 06:59 06:59 06:59 Intake Total 1672 Balance 1672 Weight 62.6 kg - PIH/Pre-Eclampsia Clonus: Negative Headache: Absent Epigastric Pain: No Visual Changes: No - Lochia Lochia Amount: Scant < 10 ml Lochia Color: Rubra/Red - Abdomen Description: Soft Hernia Present: No Fundal Description: Firm, Midline Fundal Height: u/u - u/2 Objective-Diagnostic Laboratory: 10/28/19 06:49 10/28/19 06:49 WBC 12.1 H RBC 3.40 L Hgb 7.7 L D Hct 24.3 L MCV 71 L MCH 22.8 L MCHC 31.9 L RDW 18.5 H Plt Count 246 Assessment and Plan(PN) - Assessment and Plan (1) hemorrhage Qualifiers: hemorrhage type: third-stage Qualified Code(s): O72.0 - Third- stage hemorrhage Is this a current diagnosis for this admission?: Yes (2) Normal course Is this a current diagnosis for this admission?: Yes (3) Anemia due to acute blood loss Is this a current diagnosis for this admission?: Yes (4) Vaginal delivery Is this a current diagnosis for this admission?: Yes - Time Spent with Patient Time with patient: Less than 15 minutes Medications reviewed and adjusted accordingly: Yes - Disposition Anticipated Discharge: Home Within: within 24 hours
[2019-10-29 06:06] VITALS: BP 102/61
[2019-10-29] MEDS: IBUPROFEN 800 MG TABLET PO SCH (07:29)
[2019-10-29] MEDS: PRENATAL VITAMIN W DHA CAPSULE PO SCH (09:13)
[2019-10-29] MEDS: ASCORBIC ACID 500 MG TABLET PO SCH (09:13)
[2019-10-29] MEDS: FAMOTIDINE 20 MG TABLET PO SCH (09:14)
[2019-10-29] MEDS: SENNOSIDES/DOCUSATE 8.6-50 MG 1 EACH TABLET PO SCH (09:14)
[2019-10-29] MEDS: FERROUS SULFATE 325 MG TABLET PO SCH (09:14)
[2019-10-29] MEDS: DOCUSATE SODIUM 100 MG CAPSULE PO SCH (09:14)
--- NOTE | 2019-10-29 09:52 | PDOC PROGRESS REPORT ---
Subjective-OB Progress Note for:: 10/29/19 Subjective: Doing well, toleratimg low iron, breat and bottle, hsb in room, eating and drinking well, scant lochia Physical Exam (OB) Vital Signs: Temp Pulse Resp BP Pulse Ox 97.5 F 79 17 102/61 100 10/28/19 22:49 10/28/19 22:49 10/28/19 22:49 10/28/19 22:49 10/28/19 22:49 Intake & Output 10/28/19 10/29/19 10/30/19 06:59 06:59 06:59 Intake Total 1722 Balance 1722 - PIH/Pre-Eclampsia Clonus: Negative Headache: Absent Epigastric Pain: No Visual Changes: No - Lochia Lochia Amount: Scant < 10 ml Lochia Color: Rubra/Red - Abdomen Description: Soft Hernia Present: No Fundal Description: Firm, Midline Fundal Height: u/u - u/2 Objective-Diagnostic Laboratory: 10/28/19 06:49 Assessment and Plan(PN) - Assessment and Plan (1) hemorrhage Qualifiers: hemorrhage type: third-stage Qualified Code(s): O72.0 - Third- stage hemorrhage Is this a current diagnosis for this admission?: Yes (2) Normal course Is this a current diagnosis for this admission?: Yes (3) Anemia due to acute blood loss Is this a current diagnosis for this admission?: Yes (4) Vaginal delivery Is this a current diagnosis for this admission?: Yes - Time Spent with Patient Time with patient: Less than 15 minutes Medications reviewed and adjusted accordingly: Yes - Disposition Anticipated Discharge: Home Within: within 24 hours
--- NOTE | 2019-10-29 09:58 | PDOC DISCHARGE SUMMARY ---
Impression - Admit/DC Date/PCP Admission Date/Primary Care Provider: 10/27/19 01:40 Discharge Date: 10/29/19 - Discharge Diagnosis (1) hemorrhage Is this a current diagnosis for this admission?: Yes (2) Normal course Is this a current diagnosis for this admission?: Yes (3) Anemia due to acute blood loss Is this a current diagnosis for this admission?: Yes (4) Vaginal delivery Is this a current diagnosis for this admission?: Yes - Additional Information Discharge Diet: As Tolerated, Regular Discharge Activity: Activity As Tolerated, No Lifting Over 10 Pounds, No Lifting/Push/Pulling, Pelvic Rest Referrals: ERNESTO ROSS MD [ACTIVE STAFF] - (RTC 2 weeks) Prescriptions: Ferrous Sulfate [Feosol 325 mg Tablet] 325 mg PO BID #60 tablet Home Medications: Vits96/Iron Fum/Folic [ Tablet] 1 tab PO DAILY 10/13/19 Ferrous Sulfate [Feosol 325 mg Tablet] 325 mg PO BID #60 tablet 10/29/19 HPI Gestational Age: 40.4 Reason(s) for Admission: Onset of Labor Admission Note: AROM Procedures: NST, Ultrasound Intrapartum Procedure(s): Spontaneous Vaginal Delivery Complication(s): Laceration-Periurethral Laceration-Degree: 1st - light mec, male infant, 7 lbs, 8/9 Hospital Course Hospital Course: routine PP care Results Laboratory Results: WBC 12.1 10^3/uL (4.0-10.5) H 10/28/19 06:49 RBC 3.40 10^6/uL (3.72-5.28) L 10/28/19 06:49 Hgb 7.7 g/dL (12.0-15.5) L D 10/28/19 06:49 Hct 24.3 % (36.0-47.0) L 10/28/19 06:49 MCV 71 fl (80-97) L 10/28/19 06:49 MCH 22.8 pg (27.0-33.4) L 10/28/19 06:49 MCHC 31.9 g/dL (32.0-36.0) L 10/28/19 06:49 RDW 18.5 % (11.5-14.0) H 10/28/19 06:49 Plt Count 246 10^3/uL (150-450) 10/28/19 06:49 Lymph % (Auto) 20.5 % (13-45) 10/27/19 01:48 [place] % (Auto) 11.8 % (3-13) 10/27/19 01:48 Eos % (Auto) 1.5 % (0-6) 10/27/19 01:48 Baso % (Auto) 0.6 % (0-2) 10/27/19 01:48 Absolute Neuts (auto) 4.9 10^3/uL (1.7-8.2) 10/27/19 01:48 Absolute Lymphs (auto) 1.5 10^3/uL (0.5-4.7) 10/27/19 01:48 Absolute Monos (auto) 0.9 10^3/uL (0.1-1.4) 10/27/19 01:48 Absolute Eos (auto) 0.1 10^3/uL (0.0-0.6) 10/27/19 01:48 Absolute Basos (auto) 0.0 10^3/uL (0.0-0.2) 10/27/19 01:48 Seg Neutrophils % 65.6 % (42-78) 10/27/19 01:48 Urine Color STRAW 10/26/19 23:39 Urine Appearance SLIGHTLY-CLOUDY 10/26/19 23:39 Urine pH 7.0 (5.0-9.0) 10/26/19 23:39 Ur Specific [place] 1.003 10/26/19 23:39 Urine Protein NEGATIVE mg/dL (NEGATIVE) 10/26/19 23:39 Urine Glucose (UA) NEGATIVE mg/dL (NEGATIVE) 10/26/19 23:39 Urine Ketones NEGATIVE mg/dL (NEGATIVE) 10/26/19 23:39 Urine Blood MODERATE (NEGATIVE) H 10/26/19 23:39 Urine Nitrite NEGATIVE (NEGATIVE) 10/26/19 23:39 Urine Bilirubin NEGATIVE (NEGATIVE) 10/26/19 23:39 Urine Urobilinogen NEGATIVE mg/dL (<2.0) 10/26/19 23:39 Ur Leukocyte Esterase LARGE (NEGATIVE) H 10/26/19 23:39 Urine Ascorbic Acid NEGATIVE (NEGATIVE) 10/26/19 23:39 Membranes Rupture NEGATIVE (NEGATIVE) 10/26/19 23:50 Urine Opiates Screen NEGATIVE 10/26/19 23:39 Urine Methadone Screen NEGATIVE 10/26/19 23:39 Ur Barbiturates Screen NEGATIVE 10/26/19 23:39 Ur Phencyclidine Scrn NEGATIVE 10/26/19 23:39 Ur Amphetamines Screen NEGATIVE 10/26/19 23:39 U Benzodiazepines Scrn NEGATIVE 10/26/19 23:39 Urine Cocaine Screen NEGATIVE 10/26/19 23:39 U Marijuana (THC) Screen NEGATIVE 10/26/19 23:39 Blood Type O POSITIVE 10/27/19 01:48 Antibody Screen NEGATIVE 10/27/19 01:48 Plan Health Concerns: anemia, routine care Plan of Treatment: routine Goals: normal rouevere PP care Time Spent: Less than 30 Minutes
--- NOTE | 2019-10-30 13:59 | Delivery Summary ---
Del Sum A-C Datetime Report Generated by CPN: 10/30/2019 13:58 DELIVERY PERSONNEL DELIVERY PERSONNEL: [id number] Delivery Doctor:: Ralph Kaba MD Labor and Delivery Nurse:: Keaton Flores RNbox worker Nurse:: Milagros Medina RN Track Sweeper/VIDEOTAPE SALES REPRESENTATIVE: Daphne Walker, INVENTORY CONTROL ANALYST MATERNAL INFORMATION Delivery Anesthesia: Epidural Medications After Delivery: Pitocin Drip 20 Units/1000ml NSS Meds After Delivery Comment: Pitcon 20 Units in 1000mL NS Delivery QBL: 350 Maternal Complications: None LABOR SUMMARY EDC: 10/23/2019 00:00 No. Babies in Womb: 1 Attempted: No Labor Anesthesia: Epidural LABOR INFORMATION Reason for Induction: Not Applicable Onset of Labor: 10/27/2019 01:32 Complete Dilatation: 10/27/2019 16:56 Oxytocin: Augmentation Group B Beta Strep: negative Antibiotics # of Doses: 0 Steroids Given: None Reason Steroids Not Administered: Not Applicable MEMBRANES Membranes Rupture Method: Artificial Rupture of Membranes: 10/27/2019 09:23 Length of Rupture (hr): 7.73 Amniotic Fluid Color: Light Meconium Amniotic Fluid Amount: Moderate Amniotic Fluid Odor: Normal STAGES OF LABOR Stage 1 hr: 15 Stage 1 min: 24 Stage 2 hr: 0 Stage 2 min: 11 Stage 3 hr: 0 Stage 3 min: 3 Total Time in Labor hr: 15 Total Time in Labor min: 38 VAGINAL DELIVERY Episiotomy: None Laceration #1: Periurethral Laceration Extension #1: N/A Laceration #2: None Laceration Extension #2: N/A Laceration #3: None Laceration Extension #3: N/A Laceration Repair: Yes Laceration Repair Note: small skin break repaired with 3-0 chromic suture Sponge Count Correct: Vaginal Sweep Performed Sharps Count Correct: Yes CSECTION DELIVERY Primary Indication: N/A Secondary Indication: N/A CSection Incidence: N/A Labor: N/A Elective: N/A BABY A INFORMATION Delivery Date/Time: 10/27/2019 17:07 Method of Delivery: Vaginal Method of Delivery: Vaginal Born in Route : No : N/A Forceps: N/A Vacuum Extraction: N/A Shoulder Dystocia : No PRESENTATION/POSITION BABY A Presentation: Cephalic Cephalic Presentation: Vertex Vertex Position: Left Occipital Anterior Breech Presentation: N/A PLACENTA INFORMATION BABY A Placenta Delivery Time : 10/27/2019 17:10 Placenta Method of Delivery: Spontaneous Placenta Method of Delivery: Spontaneous Placenta Status: Delivered SCORES BABY A Heart Rate 1 min: >100 bpm Resp Effort 1 min: Good Cry Reflex Irritability 1 min: Cough or Sneeze or Pulls Away Muscle Tone 1 min: Active Motion Color 1 min: Blue/Pale Resuscitation Effort 1 min: Tactile Stimulation SCORE 1 MIN: 8 Heart Rate 5 min: >100 bpm Resp Effort 5 min: Good Cry Reflex Irritability 5 min: Cough or Sneeze or Pulls Away Muscle Tone 5 min: Active Motion Color 5 min: Body [place], Extremities Blue Resuscitation Effort 5 min: Tactile Stimulation SCORE 5 MIN: 9 INFANT INFORMATION BABY A Gestational Age at Delivery: 40.4 Gestational Status: Full Term- 39- 40.6 Weeks Infant Outcome : Liveborn Infant Condition : Stable Infant Sex: Male Sex: Male IDENTIFICATION BABY A Verification Date/Time: 10/27/2019 18:20 ID Band Number: [id number] Mother's Name Verified: Yes RN Verifying : H. Adam, RN and J. Broderickwell, RN WEIGHT/LENGTH BABY A Birthweight (gm): 3179 Infant Weight (lb): 7 Infant Weight (oz): 0 Infant Length (in): 19.50 Infant Length (cm): 49.53 CORD INFORMATION BABY A No. Cord Vessels: 3 Nuchal Cord : Around Neck x1, Loose Cord Blood Taken: Yes-For Eval (Mom's Blood Type - or O+) Infant Suction: None ASSESSMENT BABY A Complications: None Physical Findings at Delivery: Within Normal Limits Infant Respirations: Appears Normal Skin to Skin: Yes Transferred To: Remains with Mother SIGNATURES Signature: with User ID: [email or web address]
== END 2019-10-29 13:53 | disposition home or self-care (01) | DRG 806 ==
LOC: LC 23:23 → LR 10-27 01:40 → 2S 10-27 20:03
PROVIDERS: ADMIT Obstetrics & Gynecology Gynecology; ATTEND Obstetrics & Gynecology Gynecology
PROC: 10E0XZZ Delivery of Products of Conception, External Approach (ICD-10-PCS; principal; 2019-10-27)
PROC: 0HQ9XZZ Repair Perineum Skin, External Approach (ICD-10-PCS; 2019-10-27)
PROC: 10907ZC Drainage of Amniotic Fluid, Therapeutic from Products of Conception, Via Natural or Artificial Opening (ICD-10-PCS; 2019-10-27)
DX: O71.82 Other specified trauma to perineum and vulva (principal); O72.0 Third-stage hemorrhage; Z37.0 Single live birth; O69.81X0 Labor and delivery complicated by cord around neck, without compression, not applicable or unspecified; O90.81 Anemia of the puerperium; O77.0 Labor and delivery complicated by meconium in amniotic fluid; Z3A.40 40 weeks gestation of pregnancy
CPT/HCPCS: 36415; 80307; 81005; 84112; 85025; 85027; 86592; 86850; 86900; 86901; J0696; J2300; J2370; J2590; J3010; J3490